=== PATIENT | male | born 1955 | race Caucasian/White ===

== ENCOUNTER 2019-07-25 03:25 | Outpatient (CLI) | payer BC, SELFPAY ==
[2019-07-25 10:51] LABS: Hemoglobin A1C 5.2 % (4.5-6.2)
[2019-07-25 11:05] LABS: Calculated LDL 112 mg/dL; Cholesterol 176 mg/dL (50-200); HDL Cholesterol 42 mg/dL (40-60); Triglyceride 111 mg/dL (30-150)
--- NOTE | 2019-07-25 14:43 | DI.CTLCSR_ITS ---
EXAM: CT CHEST LUNG CANCER SCREEN CLINICAL HISTORY: cancer screen Z87.891 NICOTINE DEPENDENCE. TECHNIQUE: CT examination of the chest was performed utilizing non-contrast low-dose lung cancer scr eening protocol. COMPARISON: No exams were available for comparison FINDINGS: Images obtained through the upper abdomen show nonobstructing stone of the right kidney and a probabl e left renal cyst. Visualized portions of liver and spleen appear intact as does the pancreas. There is a 12 millimeter in diameter as well as a 7 millimeter in diameter nodule; these are both ass ociated with the minor fissure on the right and show slight contour irregularity. These are noncalci fied nodules. No additional nodule seen. No mediastinal or hilar adenopathy. Tracheobronchial tree appears intact. Note is made of ectasia of the ascending aorta at 4.7 cm. IMPRESSION: Noncalcified 12 millimeter and 7 millimeter intrapulmonary nodules seen associated with the minor fis sure on the right. Category 4A suspicious, PET-CT or tissue sampling may be considered; otherwise, 3- month LDCT recommended Lung RADS Cat 4A - Suspicious: Findings for which additional diagnostic testing and/or tissue samplin g recommended
== END 2019-07-25 03:45 ==
PROVIDERS: PCP Nurse Practitioner; Visit Provider Nurse Practitioner
DX: Z13.1 Encounter for screening for diabetes mellitus (principal); Z12.5 Encounter for screening for malignant neoplasm of prostate; H91.92 Unspecified hearing loss, left ear; Z00.00 Encounter for general adult medical examination without abnormal findings; Z87.891 Personal history of nicotine dependence; Z12.2 Encounter for screening for malignant neoplasm of respiratory organs; R91.8 Other nonspecific abnormal finding of lung field; N20.0 Calculus of kidney; N28.1 Cyst of kidney, acquired; Z13.220 Encounter for screening for lipoid disorders
CPT/HCPCS: 36415; 80061; 84153; G0297; 83036

== ENCOUNTER 2019-11-04 01:39 | Outpatient (CLI) | payer BC, SELFPAY ==
--- NOTE | 2019-11-04 08:06 | DI.RAD_ITS ---
EXAM: XR KNEE RT 3V AP,LAT,VALENTIN INDICATION: right knee pain,M25.561. COMPARISON: No exams were available for comparison TECHNIQUE: 2D digital imaging was performed. FINDINGS: There is mild narrowing of the lateral femoral tibial joint space. There is periarticular spurring i n the lateral femoral tibial joint and patellofemoral joint. No acute fracture or dislocation is see n. There are osseous densities seen posteriorly which may represent loose bodies. The soft tissues are otherwise unremarkable. IMPRESSION: 1. Osteoarthritis of the right knee. 2. Question of loose bodies in the posterior joint space.
== END 2019-11-04 01:59 ==
PROVIDERS: PCP Nurse Practitioner; Visit Provider Nurse Practitioner
DX: M25.561 Pain in right knee (principal); M17.11 Unilateral primary osteoarthritis, right knee; M23.41 Loose body in knee, right knee
CPT/HCPCS: 73562

== ENCOUNTER 2020-05-25 07:12 | Outpatient (CLI) | payer BC, SELFPAY ==
[2020-05-27 01:26] LABS: SARS-CoV-2 RNA Undetected (Undetected); SARS-CoV-2 Specimen Source Nasopharynx
== END 2020-05-25 07:32 ==
PROVIDERS: PCP Nurse Practitioner; Visit Provider Nurse Practitioner
DX: Z11.59 Encounter for screening for other viral diseases (principal)
CPT/HCPCS: U0003

== ENCOUNTER 2020-12-11 02:37 | Outpatient (CLI) | payer BC, SELFPAY ==
[2020-12-11 13:09] LABS: Calculated LDL 67 mg/dL (<100); Cholesterol 127 mg/dL (<200); HDL Cholesterol 42 mg/dL (40-60); Triglyceride 94 mg/dL (<150)
== END 2020-12-11 02:38 | disposition home or self-care (01) ==
LOC: LBO 02:37
PROVIDERS: PCP Nurse Practitioner; Visit Provider Nurse Practitioner
DX: I10 Essential (primary) hypertension (principal); Z13.6 Encounter for screening for cardiovascular disorders
CPT/HCPCS: 36415; 80061; 82565

== ENCOUNTER 2021-09-30 12:18 | Outpatient (REF) | payer BC, SELFPAY ==
[2021-09-30 13:46] LABS: Bilirubin Negative (Negative); Blood Large (Negative); Clarity Sl Cloudy (Clear); Glucose Negative (Negative); Ketones Negative (Negative); Leukocyte Esterase Negative (Negative); Nitrite Negative (Negative)
[2021-09-30 13:55] LABS: RBC >50 HPF (0-2); WBC 0-2 HPF (0-5)
[2021-09-30 13:56] LABS: Bacteria Negative HPF (Negative); C & S Indicated? No; Casts Negative LPF (Negative); Crystals Negative HPF (Negative); Epithelial Cells Few HPF (Negative); Mucus Negative (Negative)
== END 2021-09-30 12:19 | disposition home or self-care (01) ==
LOC: LBN 12:18
PROVIDERS: PCP Nurse Practitioner; Visit Provider Physician Assistant
DX: N39.0 Urinary tract infection, site not specified (principal)
CPT/HCPCS: 81003; 81015

== ENCOUNTER 2021-12-21 03:25 | Outpatient (CLI) | payer BC, SELFPAY ==
[2021-12-21 12:57] LABS: Abs Immature Grans 0.08 10^3/uL (0.0-0.06); Absolute Basophil Count 0.04 10^3/uL (0.0-0.2); Absolute Eosinophil Count 0.22 10^3/uL (0.0-0.7); Absolute Lymphocyte Count 2.49 10^3/uL (1.2-3.4); Absolute Monocyte Count 0.69 10^3/uL (0.1-0.8); Absolute Neutrophil Count 5.63 10^3/uL (1.2-6.7); Basophils % 0.4; Eosinophils % 2.4; HCT 47.5 % (40.0-50.0); HGB 15.6 g/dL (13.5-17.5); Immature Grans % 0.9; Lymphocytes % 27.2; MCH 29.9 pg (27.0-33.0); MCHC 32.8 % (32.0-36.0); MCV 91.2 fL (80-95); MPV 10.3 fL (8.0-11.0); Monocytes % 7.5; Neutrophils % 61.6; Nucleated RBC 0 %; Platelet Count 197 10^3/uL (130-400); RBC 5.21 10^6/uL (4.36-5.78); RDW 13.4 % (11.8-14.1); RDW-SD 45.2 fL; WBC 9.15 10^3/uL (4.4-10.8)
[2021-12-21 13:25] LABS: Hemoglobin A1C 5.4 % (<5.7)
[2021-12-21 14:10] LABS: ALT 19 U/L (16-63); AST 9 U/L (15-37); Albumin 4.1 g/dL (3.4-5.0); Alkaline Phosphatase 67 U/L (46-116); Anion Gap 10.5 mmol/L (3-11); BUN 20 mg/dL (7-18); Bilirubin, Total 2.1 mg/dL (0.2-1.0); CO2 25.5 mmol/L (21.0-32.0); CREATININE 1.3 mg/dL (0.70-1.30); Calcium 9.1 mg/dL (8.5-10.1); Chloride 107 mmol/L (98-107); Estimated GFR 55.06 (mL/min/1.73m2); Glucose 100 mg/dL (74-106); Lipase 69 U/L (73-393); Potassium 4.2 mmol/L (3.5-5.1); Sodium 143 mmol/L (136-145); Total Protein 6.9 g/dL (6.4-8.2)
[2021-12-21 14:39] LABS: Calculated LDL 57 mg/dL (<100); Cholesterol 135 mg/dL (<200); HDL Cholesterol 47 mg/dL (40-60); Triglyceride 156 mg/dL (<150)
== END 2021-12-21 03:26 | disposition home or self-care (01) ==
LOC: LBO 03:25
PROVIDERS: Physician Assistant; PCP Nurse Practitioner; Visit Provider Nurse Practitioner
DX: R10.9 Unspecified abdominal pain (principal); Z13.1 Encounter for screening for diabetes mellitus; Z13.6 Encounter for screening for cardiovascular disorders
CPT/HCPCS: 36415; 80053; 80061; 83690; 83036; 84132; 85025

== ENCOUNTER 2022-02-10 02:40 | Outpatient (CLI) | payer BC, SELFPAY ==
[2022-02-10 16:31] LABS: CREATININE 1.3 mg/dL (0.70-1.30); Estimated GFR 55.06 (mL/min/1.73m2); Potassium 3.8 mmol/L (3.5-5.1)
== END 2022-02-10 02:41 | disposition home or self-care (01) ==
LOC: LBO 02:40
PROVIDERS: PCP Nurse Practitioner; Visit Provider Nurse Practitioner
DX: I10 Essential (primary) hypertension (principal)
CPT/HCPCS: 36415; 82565; 84132

== ENCOUNTER 2023-01-13 02:02 | Outpatient (CLI) | payer OTHER, SELFPAY ==
[2023-01-13 12:49] LABS: Anion Gap 9.2 mmol/L (3-11); BUN 13 mg/dL (7-18); CO2 26.8 mmol/L (21.0-32.0); CREATININE 1.2 mg/dL (0.70-1.30); Calcium 8.7 mg/dL (8.5-10.1); Chloride 111 mmol/L (98-107); Estimated GFR 65.87 (mL/min/1.73m2); Glucose 114 mg/dL (74-106); Potassium 3.5 mmol/L (3.5-5.1); Sodium 147 mmol/L (136-145)
[2023-01-13 15:08] LABS: Calculated LDL 76 mg/dL (<100); Cholesterol 137 mg/dL (<200); HDL Cholesterol 47 mg/dL (40-60); Triglyceride 73 mg/dL (<150)
== END 2023-01-13 02:03 | disposition home or self-care (01) ==
LOC: LOS 02:02
PROVIDERS: PCP Nurse Practitioner Family; Visit Provider Nurse Practitioner Family
DX: Z13.6 Encounter for screening for cardiovascular disorders (principal); I10 Essential (primary) hypertension; R73.9 Hyperglycemia, unspecified
CPT/HCPCS: 36415; 80048; 80061

== ENCOUNTER 2023-02-23 14:36 | Outpatient (REF) | payer OTHER, SELFPAY | END 2023-02-23 14:37 | disposition home or self-care (01) | LOC: LBN 14:36 | PROVIDERS: Visit Provider Nurse Practitioner Family | DX: L03.012 Cellulitis of left finger; L98.8 Other specified disorders of the skin and subcutaneous tissue | CPT/HCPCS: 87077; 87070; 87186; 87205 ==

== ENCOUNTER 2023-07-20 05:18 | Outpatient (CLI) | payer OTHER, SELFPAY ==
[2023-07-20] MEDS: Inhaler, Assist Device 1 EACH MC (09:03)
[2023-07-20] MEDS: Levalbuterol HFA 15 GM INH 4 PUFF IH (09:03)
--- NOTE | 2023-07-24 13:04 | W.PFT ---
Date of service: 08/19/23 Time of Service: 07:44 Pulmonary Function Test Result Indications: Dyspnea Interpretation Spirometry: There is no airflow limitation. No significant bronchodilator response Lung Volumes: Normal lung volumes Diffusion Capacity: Normal diffusion Airway Pressure: Normal airways resistance Impression Normal pulmonary function Clinical Correlation therefore is recommended.
== END 2023-07-20 05:19 | disposition home or self-care (01) ==
LOC: RT 05:19
PROVIDERS: PCP Nurse Practitioner Family; Visit Provider Nurse Practitioner Family
DX: R06.00 Dyspnea, unspecified (principal)
CPT/HCPCS: 94060; 94726; 94729

== ENCOUNTER 2023-11-24 02:32 | Outpatient (CLI) | payer OTHER, SELFPAY ==
[2023-11-24 12:44] LABS: ALT 21 U/L (16-63); AST 12 U/L (15-37); Albumin 3.7 g/dL (3.4-5.0); Alkaline Phosphatase 60 U/L (46-116); Anion Gap 9.3 mmol/L (3-11); BUN 20 mg/dL (7-18); Bilirubin, Total 1.2 mg/dL (0.2-1.0); CO2 26.7 mmol/L (21.0-32.0); CREATININE 1.4 mg/dL (0.70-1.30); Calcium 8.9 mg/dL (8.5-10.1); Calculated LDL 66 mg/dL (<100); Chloride 109 mmol/L (98-107); Cholesterol 131 mg/dL (<200); Estimated GFR 54.75 (mL/min/1.73m2); Glucose 104 mg/dL (74-106); HDL Cholesterol 52 mg/dL (40-60); Potassium 3.9 mmol/L (3.5-5.1); Sodium 145 mmol/L (136-145); Triglyceride 67 mg/dL (<150)
== END 2023-11-24 02:33 | disposition home or self-care (01) ==
LOC: LOS 02:32
PROVIDERS: PCP Nurse Practitioner Family; Visit Provider Nurse Practitioner Family
DX: Z13.6 Encounter for screening for cardiovascular disorders (principal)
CPT/HCPCS: 36415; 80053; 80061

== ENCOUNTER 2024-10-10 15:29 | Outpatient (CLI) | payer OTHER, SELFPAY ==
--- NOTE | 2024-10-10 09:30 | DI.RAD_ITS ---
Exam(s) XR KNEE RT 3V AP,LAT,VALENTIN XR KNEE LT 3V AP,LAT,VALENTIN XR STANDING ALIGNMENT EXAM: XR STANDING ALIGNMENT and XR knee bilateral three view CLINICAL HISTORY: knee pain. TECHNIQUE: 2D digital imaging was performed. Ten images were obtained. COMPARISON: CR XR KNEE RT 3V AP,LAT,VALENTIN from 11/04/2019 FINDINGS: BONES: Degenerative changes are seen in the lower visualized lumbar spine. There is mild joint space narrowing of the hips bilaterally. In the right knee there is [id number] narrowing of the lateral femoral tibial joint. Osteophytes are seen in the patellofemoral and lateral femoral tibial joint. There is a small joint effusion. There are densities seen in the joint space suggesting loose ayad s. Vascular calcifications are present. In the left knee, curvilinear subcortical calcifications ar e seen in the distal femur. This may represent avascular necrosis or bone infarcts. The joint space s are otherwise well maintained. No significant joint effusion is seen. There is an enthesophyte pr esent. Atherosclerotic calcifications are present. The ankles are well maintained.There is no signi ficant leg length discrepancy. SOFT TISSUE: Normal. IMPRESSION: 1. Marked degenerative changes seen in the right knee as described. 2. Curvilinear subcortical lucencies in the distal femur which may reflect avascular necrosis or bone infarct. DATA REPOSITORY: RADIATION DOSE DELIVERED:
== END 2024-10-10 15:30 | disposition home or self-care (01) ==
LOC: DIORS 15:29
PROVIDERS: PCP Nurse Practitioner Family; Visit Provider Physician Assistant
DX: M17.0 Bilateral primary osteoarthritis of knee (principal)
CPT/HCPCS: 73562; 77073

== ENCOUNTER 2024-12-25 10:01 | Outpatient (CLI) | payer OTHER, SELFPAY ==
[2024-12-25 12:55] LABS: Hemoglobin A1C 5.3 % (<5.7)
[2024-12-25 13:03] LABS: ALT 19 U/L (16-63); AST 13 U/L (15-37); Alkaline Phosphatase 72 U/L (46-116); Anion Gap 9.2 mmol/L (3-11); BUN 20 mg/dL (7-18); Bilirubin, Total 1.01 mg/dL (0.2-1.0); CO2 25.8 mmol/L (21.0-32.0); CREATININE 1.4 mg/dL (0.70-1.30); Calcium 9.2 mg/dL (8.5-10.1); Calculated LDL 68 mg/dL (<100); Chloride 111 mmol/L (98-107); Cholesterol 137 mg/dL (<200); Estimated GFR 54.07 (mL/min/1.73m2); Glucose 109 mg/dL (74-106); HDL Cholesterol 57 mg/dL (>or=40); Potassium 3.9 mmol/L (3.5-5.1); Sodium 146 mmol/L (136-145); Total Protein 7.2 g/dL (6.4-8.2); Triglyceride 63 mg/dL (<150)
[2024-12-25 18:36] LABS: Hepatitis C Ab w Rflx HCV PCR Negative (Negative)
[2024-12-25 18:47] LABS: HIV-1/2 Ag & Ab Screen Negative (Negative)
[2024-12-25 19:43] LABS: HBs Antibody, Quant <3.1 mIU/mL (See Note); Hep B Surface Ab Negative (See Note); Hepatitis B Core Antibody Negative (Negative); Hepatitis B Surface Antigen Negative (Negative)
[2024-12-26 11:08] LABS: Lyme Ab w Rflx to Lyme Confirm Negative (Negative)
[2024-12-28 00:24] LABS: Anaplasma phagocytophilum Negative (Negative); B. miyamotoi PCR Negative (Negative); Babesia divergens/MO-1 Negative (Negative); Babesia duncani Negative (Negative); Babesia microti Negative (Negative); Ehrlichia chaffeensis Negative (Negative); Ehrlichia ewingii/canis Negative (Negative); Ehrlichia muris eauclairensis Negative (Negative)
== END 2024-12-25 10:02 | disposition home or self-care (01) ==
PROVIDERS: PCP Nurse Practitioner Family; Referring Provider Nurse Practitioner Family; Visit Provider Nurse Practitioner Family
DX: R73.9 Hyperglycemia, unspecified (principal); Z11.4 Encounter for screening for human immunodeficiency virus [HIV]; Z13.6 Encounter for screening for cardiovascular disorders; M25.50 Pain in unspecified joint; Z11.59 Encounter for screening for other viral diseases
CPT/HCPCS: 36415; 80053; 80061; 86704; 86706; 86803; 87340; 87389; 87798; 83036; 86618

== ENCOUNTER 2025-01-14 05:40 | Day surgery (SDC) | payer OTHER, SELFPAY ==
[2025-01-14] VITALS (12 sets, daily range): BP systolic 101–119; BP diastolic 56–83; PULSE 74–96; RESP 16–24; TEMP 36.5–37; O2SAT 94–98; BMI 28.9
[2025-01-14] MEDS: Acetaminophen 500 MG TAB 1000 MG PO (06:26)
[2025-01-14] MEDS: Gabapentin 300 MG CAP PO (06:27)
[2025-01-14] MEDS: Celecoxib 200 MG CAP 400 MG PO (06:27)
--- NOTE | 2025-01-14 06:56 | ANES.PREOP_ITS ---
General Info Date of Service Date Performed: 01/14/25 Height: 5 ft 11 in Weight: 94.1 kg Body Mass Index (BMI): 28.9 Surgical Procedure: Operation Date: 01/14/25 07:40 Proposed Procedure Side Surgeon p Knee Total Arthroplasty w/OrthAlign, Cementless CR Right Dexter Hamilton MD Actual Procedure Side Surgeon p Knee Total Arthroplasty w/OrthAlign, Cementless CR Right Dexter Hamilton MD Pre-Op Diagnosis Post-Op Diagnosis Osteoarthritis of right knee Meds Allergies and Home Medications Allergies Allergy/AdvReac Type Severity Reaction Status Date / Time lisinopril Allergy Intermediate Tongue and Verified 01/14/25 06:19 lip swelling Home Medication ?Medication ?Instructions ?Recorded albuterol sulfate 90 mcg/actuation 2 inh inhalation Q4H PRN shortness 06/28/23 aerosol inhaler of breath or wheezing #18 grams fluticasone propionate 50 1 spray intranasal Q12H #16 grams 10/02/23 mcg/actuation nasal spray,suspension (Flonase Allergy Relief) sildenafil 100 mg tablet (Viagra) 100 mg PO DAILY PRN sexual 06/17/24 activity #30 tabs amlodipine 5 mg tablet 5 mg PO DAILY #90 tabs 12/25/24 atorvastatin 20 mg tablet 20 mg PO QHS #90 tabs 12/25/24 cetirizine 10 mg tablet (Allergy 10 mg PO HS 01/13/25 Relief (cetirizine)) fluoxetine 20 mg tablet 40 mg PO QPM 01/13/25 losartan 100 mg tablet 100 mg PO HS 01/13/25 omeprazole 20 mg capsule,delayed 20 mg PO HS 01/13/25 release tamsulosin 0.4 mg capsule 0.4 mg PO HS 01/13/25 acetaminophen 500 mg tablet 1,000 mg (2 x 500 mg) PO Q8H PRN 01/14/25 pain #90 tabs aspirin 81 mg tablet,delayed 81 mg PO BID 30 days #60 tabs 01/14/25 release celecoxib 200 mg capsule (Celebrex) 200 mg PO BID PRN #60 caps 01/14/25 dexamethasone 4 mg tablet 4 mg PO DAILY #2 tabs 01/14/25 docusate sodium 100 mg capsule 100 mg PO BID #30 caps 01/14/25 (Colace) gabapentin 300 mg capsule 300 mg PO QHS #14 caps 01/14/25 oxycodone 5 mg tablet 5 mg PO Q4H PRN #18 tabs 01/14/25 Current Visit Medications: Current Medications Generic Name Dose Route Start Last Admin Trade Name Kelby PRN Reason Stop Dose Admin Acetaminophen 1,000 mg 01/14/25 06:00 01/14/25 06:26 Acetaminophen 500 Mg Tab PO 01/14/25 23:59 1,000 mg PREOP MERON Administration Celecoxib 400 mg 01/14/25 06:00 01/14/25 06:27 Celecoxib 200 Mg Cap PO 01/14/25 23:59 400 mg PREOP MERON Administration Gabapentin 300 mg 01/14/25 06:00 01/14/25 06:27 Gabapentin 300 Mg Cap PO 01/14/25 23:59 300 mg PREOP MERON Administration Cefazolin Sodium/Dextrose 2 gm in 50 mls @ 100 mls/hr 01/14/25 06:00 Ancef Duplex IVPB 01/14/25 23:59 PREOP MERON Tranexamic Acid/Sodium Chloride 1,000 mg in 100 mls @ 600 mls/hr 01/14/25 06:00 IVPB 01/14/25 23:59 PREOP MERON Ringer's Solution 1,000 mls @ 80 mls/hr 01/14/25 06:20 IV 02/13/25 06:19 INFUSION MERON IV Miscellaneous Supplies 1 each 01/14/25 06:00 Iv Access IV 01/14/25 23:59 DIRECTED MERON Sodium Chloride 0 ml 01/14/25 06:00 Normal Saline Flush 10 Ml Syr IV 01/14/25 23:59 PRN PRN Sodium Chloride 0 ml 01/14/25 06:00 Normal Saline 10 Ml Vial IJ 01/14/25 23:59 DIRECTED PRN Sterile Water 0 ml 01/14/25 06:00 Water,Injection,Sterile 10 Ml Vial IJ 01/14/25 23:59 DIRECTED PRN PFSH Active Problems Active Problems: Problem Status Onset Code Perforated left tympanic membrane on examination Acute H72.92 Shortness of breath Acute R06.02 Hyperglycemia Acute R73.9 Osteoarthritis of right knee Acute M17.11 S/P colectomy Acute Z90.49 Hypertension Chronic I10 Ascending aortic aneurysm Acute I71.2 Decreased hearing of left ear Acute H91.92 Screening for cardiovascular condition Acute Z13.6 Varicose veins of left lower extremity Acute I83.92 GERD (gastroesophageal reflux disease) Chronic K21.9 Situational depression Acute Erectile dysfunction Acute N52.9 Medical History Medical History COPD exacerbation pt. states he was tested for this and stated he was told he doesnt have this Bilateral tinnitus Calculus of kidney 09/2021 4mm Multiple lung nodules on CT CT 06/2019 IMPRES. Noncalcified 12 millimeter and 7 millimeter intrapulmonary nodules seen associated with the minor fissure on the right. seen [facility] 09/20/2019 in follow up- repeat CT benign appearance of nodules, felt to be intrapulm lymph nodes. No further f/u unless change noted by cardiothorasic sug's CT's completed yearly Former smoker >40 years Ulcerative colitis (06/04/14) 1992 ?colectomy Tobacco Smoking/Tobacco Use Status: Former Tobacco Use Passive smoking exposure: No Second hand exposure: Yes Alcohol Alcohol Intake: current Alcohol intake frequency: a few times a week Alcohol type: beer Substance Use Substance use: Occasionally Substance use type: marijuana Details: alcohol: t-2, one beer. Marijuana: t-4, bowl Vital Signs and Lab Results Vital Signs Most Recent Vital Signs in EMR: Most Recent Vital Signs Temp Pulse Resp BP Pulse Ox 36.5 C 96 H 16 106/57 L 98 01/14/25 06:29 01/14/25 06:29 01/14/25 06:29 01/14/25 06:29 01/14/25 06:29 Lab Results 01/14/25 Unknown Blood Type / Crossmatch: 2 No Data to Display Complete Blood Count: 2 No Data to Display Complete Metabolic Panel: 2 Sodium 146 mmol/L (136-145) H 12/25/24 10:23 Potassium 3.9 mmol/L (3.5-5.1) 12/25/24 10:23 Chloride 111 mmol/L (98-107) H 12/25/24 10:23 Carbon Dioxide 25.8 mmol/L (21.0-32.0) 12/25/24 10:23 BUN 20 mg/dL (7-18) H 12/25/24 10:23 Creatinine 1.4 mg/dL (0.70-1.30) H 12/25/24 10:23 Est GFR (CKD-EPI 2020) 54.07 (mL/min/1.73m2) 12/25/24 10:23 Calcium 9.2 mg/dL (8.5-10.1) 12/25/24 10:23 Albumin 4.0 g/dL (3.4-5.0) 12/25/24 10:23 Glucose 109 mg/dL (74-106) H 12/25/24 10:23 Hemoglobin A1c 5.3 % (<5.7) 12/25/24 10:23 Liver Function Panel: 2 Alanine Aminotransferase (ALT/SGPT) 19 U/L (16-63) 12/25/24 10: 23 Aspartate Amino Transf (AST/SGOT) 13 U/L (15-37) L 12/25/24 10: 23 Coagulation Panel: 2 No Data to Display Cardiac Panel: 2 No Data to Display Arterial Blood Gas: 2 No Data to Display Venous Blood Gas: 2 No Data to Display Pancreas Panel: 2 No Data to Display Thyroid Panel: 2 No Data to Display Infectious Disease: 2 HIV (1&2) Ag and Ab, 4th Generation Negative (Negative) 10:23 Hepatitis B Surface Antigen Negative (Negative) 12/25/24 10:23 Hepatitis C Antibody Negative (Negative) 12/25/24 10:23 Blood Cultures: 2 No Data to Display Toxicology Panel: 2 No Data to Display Imaging and Studies Imaging and Studies Study information below may be from another EMR and interpreted by another provider. Please see original notes in EMR for more complete details. Pulmonary Function Summary: IMPRESSION: Mild obstructive airways disease with significant bronchodilator response. Clinical correlation recommended. Other Study Summary:: FINDINGS: Images obtained through the upper abdomen show nonobstructing stone of the right kidney and a probable left renal cyst. Visualized portions of liver and spleen appear intact as does the pancreas. There is a 12 millimeter in diameter as well as a 7 millimeter in diameter nodule; these are both associated with the minor fissure on the right and show slight contour irregularity. These are noncalcified nodules. No additional nodule seen. No mediastinal or hilar adenopathy. Tracheobronchial tree appears intact. Note is made of ectasia of the ascending aorta at 4.7 cm. Anesthesia Assessment and Plan Anesthesia History Personal History: No History of Anesthesia Complications Family History: No Family History of Anesthesia Complications Exercise Tolerance Exercise Tolerance: Metabolic Equivalents>4 Pertinent Negatives Pertinent Negatives: No Symptoms of GERD, No Major Cardiovascular Symptoms or Complaints and No History of CVA/TIA Cardiac & Pulmonary Exam Cardiac Exam: Normal S1/S2 Heart Sounds Pulmonary Exam: Clear Bilateral Breath Sounds Implantable Cardiac Device Does patient have a Pacemaker or an ICD?: No Airway Exam Known Difficult Airway: No Mallampati Class: 1 Mouth Opening: Normal (> 3cm) Thyromental Distance: Greater than 3 cm Neck Range of Motion: Full ROM Neck Circumference: Normal Teeth Condition: Normal Dentition ASA Classification ASA Score: ASA 2 Emergency Case?: No NPO Status NPO Status: NPO Clears >2 hours, Solids >8 hours Anesthesia Plan Resuscitation Status: Full Code Anesthesia Technique: Spinal Anesthesia Airway Planned: Natural Airway Pain Management: Surgeon and patient request nerve block Monitors Used: Standard Monitors
[2025-01-14] MEDS: Lactated Ringers 1,000 ML 80 ML IV (07:00)
--- NOTE | 2025-01-14 07:12 | PDOC.DSDIS_ITS ---
Date of service: 01/14/25 Discharge Plan Disposition Patient Disposition: Home Condition: Good Discharge Details Reason For Visit: Right knee DJD Attending Provider: Dexter Hamilton Primary Care Provider: Jeison Austin Home Meds and New Rx's Prescriptions: New celecoxib [Celebrex] 200 mg capsule 200 mg PO BID PRNQty: 60 0RF Rx Instructions: Take one tablet twice daily for pain and inflammation aspirin 81 mg tablet,delayed release (DR/EC) 81 mg PO BID 30 Days Qty: 60 0RF acetaminophen 500 mg tablet 1,000 mg PO Q8H PRN Qty: 90 0RF Rx Instructions: Take two tablets up to every 8 hours as needed for pain dexamethasone 4 mg tablet 4 mg PO DAILY Qty: 2 0RF Rx Instructions: Take one tablet once daily for two days docusate sodium [Colace] 100 mg capsule 100 mg PO BID Qty: 30 0RF gabapentin 300 mg capsule 300 mg PO QHS Qty: 14 0RF Rx Instructions: Take one tablet at bedtime oxycodone 5 mg tablet 5 mg PO Q4H PRNQty: 18 0RF Rx Instructions: Take one tablet up to every 4 hours as needed for severe postoperative pain Continued albuterol sulfate 90 mcg/actuation HFA aerosol inhaler 2 inh inhalation Q4H PRN (Reason: shortness of breath or wheezing) Qty: 18 4RF fluticasone propionate [Flonase Allergy Relief] 50 mcg/actuation spray,suspension 1 spray intranasal Q12H Qty: 16 4RF Rx Instructions: administer into each nostril atorvastatin 20 mg tablet 20 mg PO QHS Qty: 90 4RF amlodipine 5 mg tablet 5 mg PO DAILY Qty: 90 4RF sildenafil [Viagra] 100 mg tablet 100 mg PO DAILY PRN (Reason: sexual activity) Qty: 30 11RF Patient Comments: not in the last few days?? Rx Instructions: administer 30 minutes to 4 hours before activity cetirizine [Allergy Relief (cetirizine)] 10 mg tablet 10 mg PO HS tamsulosin 0.4 mg capsule 0.4 mg PO HS fluoxetine 20 mg tablet 40 mg PO QPM omeprazole 20 mg capsule,delayed release(DR/EC) 20 mg PO HS losartan 100 mg tablet 100 mg PO HS Discontinued ibuprofen 200 MG tablet 400 mg PO BID PRN Discharge Instructions Additional Instructions: Total Knee Discharge Instructions Activity: The most important activity is to walk and to work on gentle motion (both flexion and extension). You should try to take short walks a few times a day. It is important that when resting you work on keeping the knee straight. Avoid putting a pillow behind the knee as this will encourage flexion. Work on range of motion exercises as provided by Physical Therapy. - Start outpatient physical therapy within 2 weeks. - You should wear the WAGNER hose on both legs for 2 weeks. You may remove these at night. You may also use any compression sock in place of the WAGNER hose. - Utilize [email or web address] to review exercises, see videos on exercises and obtain basic information pertaining to your surgery and your recovery. Dressing: Remove the Javier wrap by 2 days after your surgery and put on the WAGNER stocking given to you from the hospital. Keep the surgical dressing (underneath the JAVIER wrap) in place for at least one week. After the first week it may be removed and replaced with light gauze and tape or nothing. The wound and dressing may get wet after 3 days but avoid soaking the dressing or otherwise it will need to be changed. Many people prefer covering the dressing with cling wrap (saran wrap) to minimize it from getting soaked. If it gets wet, just pat dry. If it starts to peel off then it will need to be changed. Medications: - You should take Tylenol and anti-inflammatory Celebrex as your primary pain control medications. If the Celebrex is too expensive or not covered, please call the office for another alternative (Advil/Ibuprofen or Naproxen/Aleve) - You have been prescribed a stronger pain medication Oxycodone for breakthrough pain, take as needed as prescribed. - You take a stomach acid reduction agent Omeprazole at baseline - continue with this medication to help reduce stomach acid and reflux. - You have been prescribed Gabapentin to take at night for restlessness and nerve pain. - You will be taking Aspirin 81mg twice a day for DVT prevention unless instructed otherwise. - You have also been prescribed Decadron to take to control post-operative nausea and pain. You will start this tomorrow. - If you have constipation you should take Colace (which has been prescribed) or Miralax (which is available [id number]). It takes most people 3-4 days to have a bowel movement. Follow-up: 2 weeks If you have any acute concerns or questions, please do not hesitate to contact the office at [phone]. You may contact Dr. Hamilton with any questions after hours through the hospital at [phone] or on his cell phone at [phone]. Referrals: Dexter Hamilton MD [ [facility] STAFF PHYSICIAN] - Equipment/Supplies: Walker Activity:: Elevate Remove Dressings/Wound Care:: Do Not Remove Shower/Bathe:: Cover Diet:: As Tolerated Discharge Orders Discharge Orders: Discharge Order (Routine); Ordered 01/14/25 Ordered By: Oksana Pelaez
[2025-01-14] MEDS: ceFAZolin 2 GM/50 ML BAG IVPB (07:35)
[2025-01-14 07:36] LABS: HCT 42.7 % (40.0-50.0); HGB 14.7 g/dL (13.5-17.5); MCH 30.9 pg (27.0-33.0); MCHC 34.4 % (32.0-36.0); MCV 90 fL (80-95); MPV 10.5 fL (8.0-11.0); Platelet Count 179 10^3/uL (130-400); RBC 4.75 10^6/uL (4.36-5.78); RDW 13.8 % (11.8-14.1); RDW-SD 45.9 fL; WBC 8.49 10^3/uL (4.4-10.8)
--- NOTE | 2025-01-14 07:39 | W.PM.OP ---
Operative Note Operative Note PRE-OP DIAGNOSIS: Right Knee Osteoarthritis POST-OP DIAGNOSIS: same PROCEDURE: Right Total Knee Replacement with Intraoperative Navigation SURGEON: Dexter Hamilton PRODUCTION CONTROL COORDINATING CLERK: Oksana Pelaez ANESTHESIA TYPE: Spinal Refer to Anesthesia Record ESTIMATED BLOOD LOSS: 100 PATHOLOGY: none sent TOURNIQUET TIME: 0 COMPLICATIONS: None Patient was transported to: PACU Patient's condition: stable Implants: 1. Depuy Attune Cementless Cruciate Retaining Femoral Component, Size 6 2. Depuy Attune Cementless Fixed Bearing Tibial Component, Size 7 3. Depuy Attune 6x8mm CR/FB Poly Indications: I have seen Cameron in clinic for symptoms of RIGHT knee arthritis, confirmed with radiographic findings. He has exhausted nonoperative methods and was having significant limitations in daily function and desired better function and less pain. I discussed the technical details of a knee replacement. I explained the risks of the procedure to include, but not limited to, bleeding, infection, pain, stiffness, fracture, damage to nerves and vessels, damage to muscles and tendons, loosening, need for repeat procedure, blood clot and cardiopulmonary demise. Despite these risks, Cameron elected to proceed. Findings: There was significant signs of arthritis throughout the knee. Procedure Description: Cameron was greeted in the preoperative holding area where the correct side was identified and marked. The consent was reviewed with the patient and signed. The history and physical was updated. All questions were answered. Preoperative medications were administered: Acetaminophen 1000mg, Celebrex 400mg, and Gabapentin 300mg. An adductor canal block was then administered by the anesthesia team in the DSU. He was taken back to the operating room. A spinal anesthestic was then administered. The patient was placed into the supine position on the operating room table. Posts were placed for positioning during the procedure. All bony prominences were well padded. Prophylactic antibiotics in the form of Cefazolin were administered. 1g of Tranxemic Acid was given intravenously within 30 minutes of incision. The right leg was then prepped with Chloraprep and draped in a standard fashion with impervious stockinette. A second prep with Chloraprep was performed prior to application of Iodine impregnated skin protection. A timeout to confirm correct identity, side and site, procedure, allergies, anesthesia, and medical concerns was performed. With the knee in some flexion, a midline incision was made overlying the knee. Full thickness skin flaps were raised once the extensor mechanism was encountered. These were raised medially and laterally. Any bleeding was controlled with electrocautery. Once the extensor mechanism was fully exposed, a medial parapatellar arthrotomy was performed in a flexed position. All bleeding from the arthrotomy and the geniculate arteries was coagulated. A medial subperiosteal peel was performed with electrocautery to the midcoronal plane. The fat pad was removed while keeping the patellar tendon protected. The anterior distal femur synovium was removed for later visualization. The ACL and PCL were resected and the anterior horn of the lateral meniscus was transected. The knee was then flexed with the patella everted. Large osteophytes from the tibia were removed. Large osteophytes from the femur were removed. A single starting pin was then placed 1cm anterior to the PCL insertion and the notch in the direction of the femoral head. The OrthoAlign device was applied over the pin. It was oriented to be in line with the epicondylar axis and the trochlear groove. It was then pinned into place. The navigation computer was then turned on and calibrated. The distal femur cut was set at 0 degrees varus and 3 degrees flexion. The distal femur cutting guide then was positioned for a 9mm cut. The distal femur was cut with an oscillating saw while protecting the soft tissues. The tibia was then addressed. The OrthoAlign device was placed over the tibial tubercle and medial tibia and secured into position. Once again, OrthoAlign was calibrated and then set for a 1 degree varus cut and 5 degrees of posterior slope. With this locked into position, the cut thickness stylus was used to assess cut thickness. The lateral side, most involved side, was set for a 5mm cut, which corresponded to 9mm medially based on preoperative templating. This was then held in position and pinned into place with 2 additional pins and a cross pin for stability. The medial and lateral collateral ligaments were protected and the cut was performed. With this completed, it was assessed and noted to be of appropriate dimensions. The guide and OrthoAlign was removed. A spacer block was inserted and the knee was brought into extension to ensure enough space was present. . The Orthoalign gap balancing device was then placed in extension. This was used to ensure that the ligaments were properly balanced with up to 2 to 3 mm laxity laterally compared medially. The extension gap was measured as 20mm. The knee was then brought into 90 degrees of flexion and the ligament environmental conflict manager was once again placed. Under the same amount of force the flexion gap was measured. The Attune specific jig was placed and the flexion gap was made to match the extension gap. The femur was then sized as a size 6. The 4-in-1 cutting guide was the placed. An mita wing was used to confirm appropriate position of the anterior cut to avoid notching. This cutting guide was ensured to be flush on the cut surface and then pinned into place with headed pins. While protecting the soft tissues, quad tendon, and collateral ligaments, the anterior and posterior cuts were performed with a saw. The central two pins were removed and the posterior and anterior chamfers were cut next. The notch-cutting guide was placed. This was pinned to lateralize the femoral component as much as possible while keeping it flush on the cut surface. This was then pinned into position. A saw was used to make the notch cut. A rasp smoothed the cut surfaces. The medial and lateral menisci were removed. A trial femoral component was then inserted, impacted down to the cut surfaces, and the lug holes were drilled. A provisional trial tibial component was placed and the knee was brought through range of motion. The polyethylene was trialed until there was good flexion and extension with excellent stability to the medial and lateral collaterals. The patella was tracking without thumbs. A size 8mm polyethylene component provided the best range of motion and stability with less than 2mm gapping with medial and lateral stress and full extension without significant hyperextension. The tibial cut surface was fully exposed. The tibia was then sized as a 7. The tibia had been previously marked during trialing to correspond to the center of the tibial component to help with rotation. The trial was aligned to this nikki, approximately rotated to the medial 1/3rd of the tibial tubercle. The trial was pinned into place. The tibia was prepared with a reamer and a keel punch and lug holes. The trial components were removed. The final components were opened on the back table. The periosteal and capsular tissues, especially posteriorly, around the knee were then systematically injected with a periarticular cocktail consisting of 246mg of Ropivacaine, 0.5mg of Epinephrine, 0.08mg of Clonidine, and 30mg of Ketorolac, diluted to 100cc. The knee components were then placed. Starting with the tibial component, the tibia was subluxed anteriorly and the lug holes of the component were lined up. The tibia was then impacted with an impactor and mallet until the tibial component was in contact with the tibia. Then, the femoral component was inserted. The lug holes were aligned and the component was impacted into position. The final polyethylene component was inserted. The knee was irrigated with Surgiphor Betadine solution. This was allowed to sit in the knee for 3 minutes and then it was thoroughly irrigated out with saline. After the cement had finally cured, approximately 15min, the clamp was removed from the patella and the knee was taken through range of motion. The patella was tracking with a no-thumbs technique. The capsule was then reapproximated with a No. 1 Vicryl at multiple locations. The capsule was finally closed with a No. 2 Stratafix, barbed suture. Deep tissues were then reapproximated with 0 Vicryl and 2-0 Vicryl. The skin was closed with a running 3-0 Monocryl in a subcuticular fashion. This was reinforced with skin glue. A Mepilex silver dressing was applied along with a [id number] JESUS wrap. A CryoCuff was applied. Cameron was transferred to the hospital bed without difficulty an suffering no apparent complication. Cameron has a good prognosis. Physical therapy will start today and without restrictions, weight-bearing as tolerated. Aspirin 81mg BID will be used for DVT prophylaxis. Date of Procedure: 01/14/25
[2025-01-14] MEDS: TRANEXAMIC ACID/SOD. CHL. 1,000 MG/100 ML BAG 600 MG IVPB (07:50)
--- NOTE | 2025-01-14 08:15 | W.ANESNERVE ---
Nerve Block Single Injection Procedure Date and Time Date Performed: 01/14/25 Procedure Start: 07:10 Location Where Procedure Performed Procedure Location: Day Surgery Unit Reason Performed: Postoperative Analgesia Requesting Provider: Dexter Hamilton Timeout Performed Timeout Performed: Yes Monitoring Used ECG, Blood Pressure, SpO2 and See EMR for corresponding vital signs Sterility Sterility: Hand Hygiene, Surgical Cap, Surgical Mask, Sterile Gloves and Chlorhexidine Sedation Given During Procedure Sedation Given (Indicate Dose Given): No Sedation given Patient Mental Status Patient Mental Status: Awake Nerve Block 1st Nerve Block: Laterality: Right Block Type: Adductor Canal Ultrasound Image Saved?: Yes Needle / Catheter Used: 100mm SonoPlex II Local Anesthetic Bolus (Indicate Dose Given): Lidocaine used for local infiltration of skin, Injected in 3-5ml increments after negative blood aspiration, Bupivacaine 0.25% Dose:: 10ml and Exparel Dose:: 10ml Additives (Indicate Dose Given): None Ultrasound: Sterile probe cover and gel used Nerve Stimulator: Not Used Paresthesia: None Procedure Tolerated: No Complications and Patient tolerated well Procedure Outcome: Successful Procedure Comment: Procedure straight forward, no discomfort. Performed By: Braulio Taveras
--- NOTE | 2025-01-14 10:45 | PT.INIE ---
PT Notes Visit Reasons: Right knee DJD Physical Therapy Day Surgery Initial Evaluation Date: 01/15/2025 Referring Doctor: LEONARD Barth PT Orders: PT CONSULT: S/P Ortho Surgery Precautions: WBAT on the right LE with AD. Patient Profile/Admitting Diagnosis: Wilbert is a 69-year-old male with degenerative joint disease of the right knee and is status post right total knee arthroplasty on postoperative day 0. PMHX: Medical History Ulcerative colitis (06/04/14) 1992 ?colectomy COPD exacerbation Bilateral tinnitus Calculus of kidney 09/2021 4mm Multiple lung nodules on CT CT 06/2019 IMPRES. Noncalcified 12 millimeter and 7 millimeter intrapulmonary nodules seen associated with the minor fissure on the right. seen [facility] [place] 09/20/2019 in follow up- repeat CT benign appearance of nodules, felt to be intrapulm lymph nodes. No further f/u unless change noted by cardiothorasic sug's CT's completed yearly Former smoker >40 years Social History/Home Situation: Lives with in a private home with send 7 steps to enter with a rail on one side. Independent with all aspects of ADLs prior to surgery. Equipment Owned/DME: [facility] Subjective: Complained of a mild ache in the right popliteal area with movement that did not limit mobility performance. Objective: General Observation: JESUS wraps to right LE. Cryocuff to right knee. Mental Status: A and O x 4 Pain: 1-2/10 in the popliteal area ROM: Right Lower Extremity: Hip flexion WFL. Hip abduction WFL. Knee flexion WFL. Ankle dorsiflexion WFL. Ankle plantarflexion WFL. Left Lower Extremity: Hip flexion WFL. Hip abduction WFL. Knee flexion 10 degrees to 110 degrees. Knee extension -10 degrees. Ankle dorsiflexion WFL. Ankle plantarflexion WFL. Strength: Right Lower Extremity: Hip flexors 5/5. Hip abductors 5/5. Knee flexors 5/5. Knee extensors 5/5. Ankle dorsiflexors 5/5. Ankle plantarflexors 5/5. Left Lower Extremity:Hip flexors 5/5. Hip abductors 5/5. Knee flexors 3-/5. Knee extensors 3-/5. Ankle dorsiflexors 5/5. Ankle plantarflexors 5/5. Sensation: Intact as to pain and light pressure in bilateral lower extremities. Bed Mobility/Transfers: Minimal cueing provided for use of B hands as needed for support, movement sequence, AD management, and posture to reduce fall risk and minimize pain report Supine to sit stand by assist Sit to stand contact guard assist Stand to sit stand by assist Bed to chair stand by assist Gait: Facilitated safe and correct performance of level surface ambulation covering a distance of 150 feet with reciprocal swing through heel-toe gait pattern requiring only standby assist and minimal verbal cueing for AD management, weight distribution, limb movement sequence, and posture to minimize pain reported with fall risk. Stairs: Guided patient with safe and correct negotiation of 6 x 4 inch steps and 4 x 6 inch steps while holding onto rail and using a single-point cane with the other hand with step to gait pattern requiring standby assist and minimal verbal cueing for limb movement sequence, weight distribution, hand placement, and AD management to minimize pain report and reduce fall risk. Balance: Static Sitting: Normal Dynamic Sitting: Normal Static Standing: Fair Dynamic Standing: Fair Special Tests: Mobility Limitations Standardized Measure [facility] AM-PAC 6 clicks Basic Mobility Inpatient Short Form: Raw Score: 23 CMS Score: 11% deficit Informed Consent/Education: Patient instructed in purpose of PT consult. Packet containing TKA exercise protocol has been given to patient. Education and training on initial set of exercises that can be done at home have been completed with patient. Trained patient with correct performance of exercises below to maximize motor control, joint flexibility, soft tissue extensibility of the [] knee musculature: Access Code: [email or web address] URL: [email or web address] Date: 01/15/2025 Prepared by: Alma Duron Exercises - Supine Quad Set - 1 x daily - 7 x weekly - 1 sets - 10 reps - 5 hold - Supine Heel Slide - 1 x daily - 7 x weekly - 1 sets - 10 reps - 5 hold - Supine Ankle Pumps - 1 x daily - 7 x weekly - 1 sets - 10 reps - 5 hold - Small Range Straight Leg Raise - 1 x daily - 7 x weekly - 1 sets - 10 reps - 5 hold - Seated March - 1 x daily - 7 x weekly - 1 sets - 10 reps - 5 hold Assessment: Patient requires use of a front wheeled walker for mobility ADL performance to maximize independence and reduce fall risk. Patient presents with clinical signs and symptoms consistent with current/admitting diagnoses that have resulted to mobility limitations, gait instability, generalized weakness, and impairment of motor control as demonstrated by the following impairment level findings: 1. Decreased strength to R knee major muscle groups 2. Impaired standing balance 3. Limitation of joint range of motion in R knee Impairments are contributing to the following functional limitations: 1. Inability to safely ambulate without assistive device 2. Increase completion time for mobility ADL performance 3. Increased fall risk Patient is assessed as a 04342 moderate complexity based on the following: History: 69-year-old male with impairment level findings, functional limitations, and past medical history as indicated above Examination: Demonstrable impairment in strength, balance, and mobility level with underlying impairments and functional limitations as documented above Presentation: Evolving Decision Makin moderate complexity Goals: N/A. PT evaluation and 1-2 treatment sessions only for functional mobility training using recommended AD and for HEP instruction. Plan of Care/Treatment Plan: N/A. PT evaluation and 1-2 treatment session only for functional mobility training using recommended AD and for HEP instruction. DISCHARGE RECOMMENDATIONS: Home when medically cleared by orthopedic surgeon. Recommend outpatient PT services in order to optimize functional mobility outcomes and facilitate return to independent community ambulation without an assistive device. TREATMENT CODE/TIME: 79177 x 20 minutes for 1 unit, 28078 x 18 minutes for 1 unit (10: 45?11: 23). Thank you for the opportunity to participate in the care of this patient. Please sign an return this page within 30 days if you agree with the above POC. Thank you! Physician Signature Date [facility] Alma Duron PT, DPT, CLT [facility] [place], [place]
--- NOTE | 2025-01-14 10:58 | W.ANESPOSTOP ---
Postoperative Evaluation Date, Time and Location Date Performed: 01/14/25 Time Performed: 10:12 Patient Location: Day Surgery Unit Vital Signs Most Recent Imported Vital Signs: Most Recent Vital Signs Temp Pulse Resp BP Pulse Ox 36.5 C 83 16 104/56 L 94 01/14/25 10:12 01/14/25 10:12 01/14/25 10:12 01/14/25 10:12 01/14/25 10:12 Pain Score Most Recent Pain Score: Most Recent Pain Score Pain Level 0 01/14/25 10:12 Assessment Mental Status: Awake (Alert & Oriented to Patient Baseline) Airway and Respiratory Function: Patent airway with normal (patient baseline) respiratory exam Cardiovascular Function: Hemodynamically Stable Hydration Status: Adequately Hydrated Nausea & Vomiting: No Nausea or Vomiting Pain: Pt. Denies Any Pain Peripheral Nerve Block: Regional nerve block not resolved at time of post operative discharge
== END 2025-01-14 12:01 | disposition home or self-care (01) ==
PROVIDERS: PCP Nurse Practitioner Family; Visit Provider Student in an Organized Health Care Education/Training Program
PROC: (CPT 27447; principal; 2025-01-14 07:30)
DX: M17.11 Unilateral primary osteoarthritis, right knee (principal); G89.18 Other acute postprocedural pain; M25.561 Pain in right knee; K21.9 Gastro-esophageal reflux disease without esophagitis; I10 Essential (primary) hypertension; Z87.891 Personal history of nicotine dependence
CPT/HCPCS: 27447; 20985; 36415; 64447; 85027; 97110; 97161; C1776; J0665; J0666; J0690; J1100; J2250; J2371; J2401; J2405; J2704

== ENCOUNTER 2025-01-27 15:30 | Outpatient (CLI) | payer OTHER, SELFPAY ==
--- NOTE | 2025-01-27 11:00 | DI.RAD_ITS ---
Exam(s) XR STANDING ALIGNMENT XR KNEE RT 1V EXAM: XR STANDING ALIGNMENT CLINICAL HISTORY: S/P TKR. TECHNIQUE: 2D digital imaging was performed. Standing AP views were performed from the pelvis throu gh the ankles. COMPARISON: CR XR KNEE RT 3V AP,LAT,VALENTIN from 10/10/2024 CR XR STANDING ALIGNMENT from 10/10/2024 CR XR KNEE LT 3V AP,LAT,VALENTIN from 10/10/2024 FINDINGS: BONES: No acute fracture is present. No bony destructive lesion is seen. Increased areas of sclerosi s are again noted in the left femoral condyles. Leg length discrepancy: No significant overall leg length discrepancy. JOINTS: Knees: Status post placement of a right total knee prosthesis the alignment appears satisfa ctory. The left knee joint spaces are maintained. The ankle joints are unremarkable. The hip joints are unremarkable. SOFT TISSUE: Normal right-sided venous varicosities. IMPRESSION: Status post placement of a right total knee prosthesis. No significant leg length discrepancy. DATA REPOSITORY: RADIATION DOSE DELIVERED:
== END 2025-01-27 15:31 | disposition home or self-care (01) ==
LOC: DIORS 15:30
PROVIDERS: PCP Nurse Practitioner Family; Visit Provider Physician Assistant
DX: Z96.651 Presence of right artificial knee joint (principal); Z47.1 Aftercare following joint replacement surgery
CPT/HCPCS: 73560; 77073